=== PATIENT | male | born 1935 | race Caucasian/White ===

== ENCOUNTER 2017-08-11 08:36 | Outpatient (CLI) | payer MEDICARE ==
--- NOTE | 2017-08-11 13:44 | HP ---
DATE OF SERVICE: 08/11/2017 HISTORY OF PRESENT ILLNESS: Mr. Ramírez Teran is a very pleasant 82-year-old gentleman, who [facility] for evaluation of recurrent cellulitis of the right and left lower extremities. The patient was referred to the [facility] by PAYTON Bautista, on 08/11/2017. The patient is accompanied by his son and [id number] today. The patient is currently receiving the applicati on of compression wraps to the right and left feet and lower legs by Home Health. The patient also utilizes JUAN hose when his right and left feet and lower legs are not wrapped. PAST MEDICAL HISTORY: 1. Hypertension. 2. Gastroesophageal reflux disease. 3. Coronary artery disease. 4. Dementia. 5. History of anemia. 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 7. History of gastrointestinal bleeding. 8. History of protein malnutrition. PAST SURGICAL HISTORY: 1. Coronary artery bypass grafting x4. 2. Left total knee replacement. 3. Right total knee replacement. 4. Right hydrocelectomy. MEDICATIONS: 1. Vitamin D3. 2. Aspirin 81 mg. 3. Chlorthalidone. 4. Citalopram. 5. Ferrous sulfate. 6. Lasix. 7. Tylenol. 8. Potassium. 9. Multivitamin. 10. Metoprolol. 11. Omeprazole. 12. Xanax. 13. Pravachol. 14. Coenzyme Q10. ALLERGIES: No known diagnosed allergies. SOCIAL HISTORY: Social history is significant for the rare use of alcohol in the past. The patient stopped smoking 20 years ago. The patient has a history of tobacco use of up to 1/2-pack of cigare ttes per day for 5-6 years. FAMILY HISTORY: Family history is negative for diabetes mellitus or coronary artery disease. PHYSICAL EXAMINATION: VITAL SIGNS: Temperature 97.9, pulse 57, respirations 19, blood pressure 144/65. GENERAL: An 82-year-old gentleman, sitting on table in examination room, in no acute distress. HEENT: Normocephalic, atraumatic. NECK: No nuchal rigidity. CHEST: Clear to auscultation. CARDIOVASCULAR: Regular rate and rhythm. ABDOMEN: Soft. EXTREMITIES: Edema of the right and left feet and lower legs is present on exam today. Stasis derm atitis is present over the right and left lower legs. No open wounds are present over the right or left lower legs. No cellulitis of the right or left lower legs is present. No maceration of the sk in of the right or left lower legs is noted. Dorsalis pedis pulse is palpable on the right and on t he left. Circumferences of the right and left lower extremities at the ankle, calf, and knee are: Right lower extremity, ankle 25.0 cm, calf 33.5 cm, knee 41.0 cm; left lower extremity, ankle 25.8 c m, calf 34.0 cm, knee 39.4 cm. ASSESSMENT AND PLAN: 1. Lymphedema of right and left lower extremities. The patient's son and [id number] have been reassured that no open wounds of the right or left lower leg are present on exam today. The patien t has been given a prescription for Synalar ointment 0.025% to be applied to the skin of the right a nd left lower legs for stasis dermatitis at the time of dressing changes. Arrangements will also be made for the initiation of in-home lymphedema therapy. The patient's son and [id number] under stand and are in agreement with the preceding treatment plan. The patient is to return to the Wound Center on 09/02/2017. Orders will be transmitted to Home Health for the present dressing changes t o be continued at the current frequency. No antibiotics will be prescribed today, and the patient's family has also been reassured that no cellulitis of the right or left lower leg is present on exam today. 2. Hypertension. 3. Gastroesophageal reflux disease. 4. Coronary artery disease. 5. Dementia. 6. History of anemia. 7. 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 8. History of gastrointestinal bleeding. 9. History of protein malnutrition.
[2017-08-11] MEDS ORDERED: Sodium Chloride 0.9% 15 ML NEB ONE (17:22)
== END 2017-08-11 08:37 | disposition home or self-care (01) ==
LOC: WCC 08:36
PROVIDERS: ATTEND Family Medicine
DX: I89.0 Lymphedema, not elsewhere classified (principal); I10 Essential (primary) hypertension; K21.9 Gastro-esophageal reflux disease without esophagitis; I25.10 Atherosclerotic heart disease of native coronary artery without angina pectoris; F03.90 Unspecified dementia, unspecified severity, without behavioral disturbance, psychotic disturbance, mood disturbance, and anxiety; Z85.01 Personal history of malignant neoplasm of esophagus; Z86.2 Personal history of diseases of the blood and blood-forming organs and certain disorders involving the immune mechanism; Z87.19 Personal history of other diseases of the digestive system; Z86.39 Personal history of other endocrine, nutritional and metabolic disease
CPT/HCPCS: 97139; 97602; G0463; 99203; A4218

== ENCOUNTER 2018-02-19 09:57 | Emergency (ER) | payer MEDICARE ==
--- NOTE | 2018-02-19 11:32 | RAD ---
PORTABLE CHEST: DATE: 02/19/18. POVIDED CLINICAL HISTORY: Cough. COMPARISON: 11/24/16. The cardiac silhouette remains enlarged. Median sternotomy changes are again seen. Athero sclerosis involves the aortic arch. No focal consolidation, pleural fluid, or pneumothorax apparent. IMPRESSION: No evidence for an acute cardiopulmonary process. POS: [facility]
[2018-02-19 11:34] LABS: Bilirubin Negative (Negative); Blood, Urine Negative (Negative); Clarity CLEAR (Clear); Glucose, Urine (Dipstick) Negative (Negative); Leukocyte Negative (Negative); Nitrite Negative (Negative); Protein, Urine (Dipstick) Negative (Neg-Trace); Specific Gravity, Urine 1.011 (1.002-1.036); Urobilinogen 0.2 mg/dL (0.2-1.0); pH, Urine 5.5 (5.0-9.0)
[2018-02-19 12:05] LABS: #Lymphocytes 1.2 thou/uL (1.20-3.40); #Monocytes 0.4 thou/uL (0.11-0.59); #Neutrophils 5.1 thou/uL (1.40-6.50); %Basophils 0.2 % (0.0-1.0); %Eosinophils 0.5 % (0.0-10.0); %Lymphocytes 17.5 % (21.0-51.0); %Monocytes 6.6 % (0.0-10.0); %Neutrophils 75.3 % (42.0-75.0); Hemoglobin 12.7 g/dL (14.0-18.0); Mean Corpuscular HGB CONC 34.3 g/dL (32.0-36.0); Mean Corpuscular Hemoglobin 33.1 pg (27.0-31.0); Mean Corpuscular Volume 96.4 fl (80.0-94.0); Mean Platelet Volume 7.3 fL (7.4-10.4); Platelet Count 153 thou/uL (130-400); RBC Distribution Width 11.9 % (11.5-14.5); Red Blood Cell (RBC) Count 3.85 mill/uL (4.70-6.10); White Blood Cell (WBC) Count 6.8 thou/uL (4.8-10.8)
[2018-02-19 12:32] LABS: ALT (SGPT) 15 U/L (8-55); AST (SGOT) 18 U/L (5-34); Albumin 4.3 g/dL (3.4-4.8); Alkaline Phosphatase 86 U/L (40-150); Anion Gap 12 mmol/L (10-20); BUN (Urea Nitrogen) 16 mg/dL (8.4-25.7); Bilirubin, Total 0.6 mg/dL (0.2-1.2); Calc. Creatinine Clearance 0 mL/min (70-130); Calcium 9.7 mg/dL (7.8-10.44); Carbon Dioxide 26 mmol/L (23-31); Chloride 104 mmol/L (98-107); Estimated GFR-MDRD 59; Globulin 3.4 g/dL (2.4-3.5); Glucose 100 mg/dL (83-110); Lipase 42 U/L (8-78); Potassium 4.3 mmol/L (3.5-5.1); Protein, Total 7.7 g/dL (5.8-8.1); Sodium 138 mmol/L (136-145)
== END 2018-02-19 13:00 | disposition home or self-care (01) ==
LOC: ERS 09:57
DX: R09.89 Other specified symptoms and signs involving the circulatory and respiratory systems (principal); I25.10 Atherosclerotic heart disease of native coronary artery without angina pectoris; E78.5 Hyperlipidemia, unspecified; I10 Essential (primary) hypertension; F03.90 Unspecified dementia, unspecified severity, without behavioral disturbance, psychotic disturbance, mood disturbance, and anxiety; Z87.891 Personal history of nicotine dependence; Z79.899 Other long term (current) drug therapy; Z79.82 Long term (current) use of aspirin
CPT/HCPCS: 71045; 80053; 81003; 83690; 85025; 93005

== ENCOUNTER 2018-06-02 14:19 | Inpatient (IN) | payer MEDICARE ==
[2018-06-02] MEDS ORDERED: PROPOFOL 200 MG/20 ML VIAL ONE (14:33)
[2018-06-02 14:54] LABS: #Lymphocytes 1.2 thou/uL (1.20-3.40); #Monocytes 0.6 thou/uL (0.11-0.59); #Neutrophils 6.1 thou/uL (1.40-6.50); %Basophils 0.2 % (0.0-1.0); %Eosinophils 0.2 % (0.0-10.0); %Lymphocytes 14.8 % (21.0-51.0); %Monocytes 7.2 % (0.0-10.0); %Neutrophils 77.5 % (42.0-75.0); Hemoglobin 12.1 g/dL (14.0-18.0); Mean Corpuscular Hemoglobin 33.1 pg (27.0-31.0); Mean Corpuscular Volume 97.2 fL (78.0-98.0); Mean Platelet Volume 6.8 fL (7.4-10.4); Platelet Count 160 thou/uL (130-400); RBC Distribution Width 11.9 % (11.5-14.5); Red Blood Cell (RBC) Count 3.67 mill/uL (4.70-6.10); White Blood Cell (WBC) Count 7.9 thou/uL (4.8-10.8)
[2018-06-02 15:13] LABS: ALT (SGPT) 11 U/L (8-55); AST (SGOT) 16 U/L (5-34); Albumin 4.4 g/dL (3.4-4.8); Alkaline Phosphatase 91 U/L (40-150); Anion Gap 15 mmol/L (10-20); BUN (Urea Nitrogen) 34 mg/dL (8.4-25.7); Bilirubin, Total 0.8 mg/dL (0.2-1.2); Calc. Creatinine Clearance 0 mL/min (70-130); Calcium 9.8 mg/dL (7.8-10.44); Carbon Dioxide 27 mmol/L (23-31); Chloride 107 mmol/L (98-107); Estimated GFR-MDRD 36; Globulin 3.3 g/dL (2.4-3.5); Glucose 134 mg/dL (83-110); Lipase 26 U/L (8-78); Potassium 4.2 mmol/L (3.5-5.1); Protein, Total 7.7 g/dL (5.8-8.1); Sodium 145 mmol/L (136-145)
[2018-06-02] MEDS ORDERED: Midazolam HCl 2 mg/2 ml Vial ONE (18:28)
[2018-06-02] MEDS ORDERED: Fentanyl 100 MCG/2 ML VIAL ONE (18:28)
[2018-06-02] MEDS ORDERED: Promethazine HCl 25 MG/ML VIAL SLOW IVP PRN (19:10)
[2018-06-02] MEDS ORDERED: Promethazine HCl 25 MG/ML VIAL IM PRN (19:10)
[2018-06-02] MEDS ORDERED: Ondansetron HCl/PF 4 MG/2 ML Vial IVP PRN (19:10)
--- NOTE | 2018-06-02 20:10 | CON ---
DATE OF CONSULTATION: 06/02/2018 GI ER CONSULTATION NOTE REASON FOR CONSULTATION: Dysphagia and possible food impaction. HISTORY OF PRESENT ILLNESS: Ramírez Teran is an 83-year-old gentleman, previously seen by my GI colleague, Dr. Esdras Royal. Dr. Royal has been following him for several years for Wallace's esophagus surveillance. It looks like in late 2016, the patient was hospitalized actually with melena and a recent fall. He underwent EGD at that time. He was found to have Wallace's esophagus with a new nodular area and a large hiatal hernia. The nodular area was biopsied and came back as invasive adenocarcinoma arising within a background of intestinal metaplasia. The patient was subsequently referred for further workup including endoscopic ultrasound. It appears he went to [facility] and had an endoscopic ultrasound in 01/2017. I do not have an actual report from that procedure in our system. The patient's son tells me that the endoscopic ultrasound findings were evidently reassuring, but that afterward there was never any followup for any treatment of this adenocarcinoma. I am not sure to what extent, this is actually the case or if any treatments were applied. At any rate, the patient did not follow up for over a year since then with regard to this issue. He is at the [facility]. The patient's son reports that the patient's weight has been stable and he has continued to feel well. However, over the past few weeks, he has had progressive dysphagia to solids and now also to liquids. He was sent over because his care provider at the facility said he was unable to tolerate any food or even any liquids today. He had been seen by Dr. Royal in our clinic just a week ago and he was scheduled for outpatient EGD next week. REVIEW OF SYSTEMS: The patient has dementia, but full review of systems including head, eyes, ears, nose, throat, constitutional, cardiovascular, respiratory, musculoskeletal, and neurologic systems is negative except as noted in the HPI. PAST MEDICAL HISTORY: Coronary artery disease; coronary artery bypass, hyperlipidemia; hypertension; CVA; dementia; esophageal adenocarcinoma, diagnosed in 10/2016, unclear if there was any initial treatment, but no followup for over the past year; bilateral knee replacement. FAMILY HISTORY: Noncontributory. SOCIAL HISTORY: The patient is at the [facility]. ALLERGIES: No known drug allergies. OUTPATIENT MEDICATIONS: Coenzyme Q10, Pravachol, potassium chloride, omeprazole , Theragran, metoprolol, memantine, vitamin D3, chlorthalidone, acetaminophen and alprazolam. PHYSICAL EXAMINATION: VITAL SIGNS: Blood pressure 128/81, pulse 62, 95% oxygen saturation on room air. GENERAL: An 83-year-old gentleman, appearing chronically ill, but nontoxic, lying in bed comfortably, in no distress. SKIN: No jaundice, no rash visible or palpable. EYES: No scleral icterus. Extraocular movements intact. ENT: Mucous membranes moist, no oral lesions. LYMPH: No submandibular or supraclavicular lymphadenopathy. THYROID: Nontender to palpation. HEART: Regular rate and rhythm. LUNGS: Clear to auscultation bilaterally. ABDOMEN: Bowel sounds present, soft and nontender to palpation. EXTREMITIES: No peripheral edema. VESSELS: Radial pulses 2+ bilaterally. NEUROLOGICAL: Cranial nerves II-XII intact bilaterally. No focal deficits. LABORATORY DATA: Hemoglobin 12.1, WBC 7.9, platelets 160. Sodium 145, potassium 4.2, BUN 34, creatinine 1.81. Lipase 26. LFTs all normal with total bilirubin 0.8, alkaline phosphatase 91, AST 16, ALT 11, albumin 4.4. ASSESSMENT AND PLAN: 1. Dysphagia. 2. Possible esophageal foreign body. 3. Esophageal adenocarcinoma, diagnosed in 10/2016. The patient was diagnosed with esophageal cancer a year and a half ago, and it appears has had no definitive therapy or follow up since then. I am concerned that he may have progressive esophageal cancer, now with progressive obstruction. The patient is currently handling his secretions just fine, but evidently has been unable to tolerate even liquids today. It is possible he has esophageal foreign body impacted in this area. We will plan to proceed with EGD on an urgent basis this evening for further assessment and foreign body removal if necessary. His disposition following the procedure to be determined by the findings. If he is not completely obstructed, he could potentially be discharged back to his care facility this evening, but if it looks like liquid diet is going to be a problem afterward, he may need to be admitted to the Hospitalist Service after the procedure. Further recommendations following EGD. [facility]
[2018-06-02] MEDS ORDERED: Metoprolol Tartrate 5 MG/5 ML VIAL IVP PRN (21:02)
[2018-06-02] MEDS ORDERED: Lorazepam 2 MG/ML VIAL SLOW IVP PRN (21:03)
[2018-06-02] MEDS: Sodium Chloride 0.9% 1,000 ML IV SCH (21:45)
--- NOTE | 2018-06-02 23:01 | OP ---
DATE OF PROCEDURE: 06/02/2018 GI ENDOSCOPY NOTE SURGEON: Ricardo Morales M.D. RN SURGICAL SURGEON: None. PROCEDURE: Esophagogastroduodenoscopy. INDICATION: 1. Progressive dysphagia. 2. Possible esophageal foreign body. 3. Known history of esophageal adenocarcinoma. MEDICATIONS: See anesthesia record. FINDINGS: After discussion of the risks, benefits and alternatives of the procedure, informed consen t was obtained and witnessed. Pre-endoscopic cardiopulmonary examination was satisfactory. Timeout was performed before sedation was achieved. Sedation was achieved with anesthesia assistance in the endoscopy unit. A Pentax adult upper endoscope was placed into the oropharynx and passed through the cricopharyngeus under direct visualization. There was a moderate amount of retained semiliquid food matter and secretions throughout the length of the esophagus. This was easily suctioned. In the di stal esophagus rather there is a completely obstructing friable mass at 35 cm in the incisors. This represents his known adenocarcinoma diagnosed last year. The mass is now completely obstructing the esophageal lumen. There were few food and pill particles above the mass. I was unable to advance th e endoscope beyond this area. At this point, the endoscope was completely withdrawn. I did not obta in esophageal biopsies on this examination, because this has already been biopsy proven adenocarcinom a. The patient was allowed to recover, the patient tolerated the procedure well. He did have vomiti ng upon induction of anesthesia, but this was quickly suctioned and there was no witnessed aspiration . IMPRESSION: 1. Completely obstructing friable esophageal mass at 35 cm, representing his known esophageal adenoc arcinoma. 2. Unable to advance the endoscope beyond the distal esophageal mass. RECOMMENDATIONS: 1. N.p.o. 2. The patient will need to be admitted to the Hospitalist Service for further workup. 3. Oncology consultation. 4. CT of the chest, abdomen, and pelvis for staging. 5. General surgery consultation for consideration of open PEG tube placement.
[2018-06-02 23:34] VITALS: BMI 28.7
[2018-06-03 05:34] LABS: Anion Gap 13 mmol/L (10-20); BUN (Urea Nitrogen) 33 mg/dL (8.4-25.7); Calc. Creatinine Clearance 47 mL/min (70-130); Calcium 9.6 mg/dL (7.8-10.44); Carbon Dioxide 26 mmol/L (23-31); Chloride 111 mmol/L (98-107); Estimated GFR-MDRD 49; Glucose 139 mg/dL (83-110); Potassium 3.5 mmol/L (3.5-5.1); Sodium 146 mmol/L (136-145)
[2018-06-03 05:58] LABS: Band 19 % (5-11); Hemoglobin 11.3 g/dL (14.0-18.0); Hypochromia SLIGHT = 6-15 cells (100X) (0-5/hpf); Lymphocytes 1 % (21-51); MDiff Complete? YES; Mean Corpuscular HGB CONC 34.2 g/dL (32.0-36.0); Mean Corpuscular Hemoglobin 33.1 pg (27.0-31.0); Mean Platelet Volume 7.1 fL (7.4-10.4); Monocytes 4 % (0-10); Neutrophil 76 % (42-75); PLT Morphology Comment Appears Adequate; Platelet Count 136 thou/uL (130-400); RBC Distribution Width 11.9 % (11.5-14.5); Red Blood Cell (RBC) Count 3.42 mill/uL (4.70-6.10)
[2018-06-03] MEDS ORDERED: Enoxaparin Sodium 30 MG/0.3 ML SYRINGE SC SCH (09:00)
[2018-06-03] MEDS: Heparin 5,000 UNITS/ML VIAL SC SCH ×3 (09:40→21:31)
[2018-06-03] MEDS ORDERED: PHENYLEPHRINE-NS 100 MCG/ML 10 ML SYRINGE ONE (11:38)
[2018-06-03] MEDS ORDERED: Lidocaine 1% PF 5 ML VIAL ONE (11:38)
[2018-06-03] MEDS ORDERED: Succinylcholine Chloride 20 MG/ML 10 ml SYRINGE FS ONE (11:38)
[2018-06-03] MEDS ORDERED: Dexamethasone 20 MG/5 ML VIAL ONE (11:38)
[2018-06-03] MEDS ORDERED: Ketorolac Tromethamine 30 MG/ML VIAL ONE (11:38)
[2018-06-03] MEDS ORDERED: PROPOFOL 200 MG/20 ML VIAL ONE (11:38)
[2018-06-03] MEDS ORDERED: Glycopyrrolate 0.2 MG/ML 5 ML SYRINGE ONE (11:38)
[2018-06-03] MEDS ORDERED: Ondansetron HCl/PF 4 MG/2 ML Vial ONE (11:38)
[2018-06-03] MEDS ORDERED: ePHEDrine/0.9% NaCl/PF SYRINGE 50 mg/10 ml ONE (11:38)
--- NOTE | 2018-06-03 11:54 | CT ---
CT CHEST WITHOUT IV CONTRAST: CT ABDOMEN AND PELVIS WITHOUT IV CONTRAST: 06/03/2018 HISTORY: Mass in the esophagus. Evaluation for metastatic disease. COMPARISON: None available. FINDINGS: The esophagus is dilated and fluid filled with soft tissue mass seen in the distal esophagus and at t he GE junction. This is difficulty to adequately evaluate on this no-contrast exam, but the area of suggested soft tissue density measures 4.3 cm AP x 7.8 cm transverse There are patchy and reticulonodular densities seen within the left upper and left lower lobe, which could be related to an infectious or inflammatory process. There is a noncalcified pulmonary nodule, measuring 6 mm, seen at the lateral aspect of the right low er lobe. There is also a right upper lobe pulmonary nodule seen in the right upper lobe, to the leve l of the major as well as minor fissure, which measures 7 mm. The pulmonary nodules on the left are difficult to evaluate due to the reticulonodular opacities present. Post surgical changes related to CABG are noted. There are extensive vascular calcifications in the coronary arteries, as well as involving the thoracic aorta. The heart is enlarged. No lymphadenopathy is appreciated on this nonenhanced CT scan exam. There is calcified granuloma in the liver. The spleen and pancreas demonstrate a grossly normal nonenhanced CT appearance. There is symmetric t hickening of each adrenal gland. This was also seen on a CT lumbar spine from 10/30/2016. There are three exophytic, hypodense lesions involving the right kidney, the largest at the medial ri ght kidney, measuring 3 cm, which demonstrates fluid attenuation on the provided images and may repre sent renal cysts. There is a subcentimeter, wzw-vrcfi-ds-characterize, hypodense lesion at the inferior pole, left kidn ey. The urinary bladder is distended and has a normal nonenhanced CT appearance. Multiple colonic diverticula are seen throughout the colon. The appendix is visualized and is normal in caliber. Prominent vascular calcifications are seen in the abdominal aorta and involving the iliac arteries. No enlarged lymph nodes are seen in the abdomen. There are small fat-containing bilateral inguinal hernias. Degenerative changes are seen within the thoracic as well as the lumbar spine with left convex rotosc oliosis of the lumbar spine. No lytic or sclerotic osseous lesions are seen to suggest osseous metas tatic disease. IMPRESSION: 1. Large mass centered in the region of the distal esophagus and at the level of the gastroesophagea l junction with a dilated and fluid filled esophagus seen proximal to this location with a small incr eased density focus in the distal esophagus. 2. Two pulmonary nodules, one in the right upper lobe and the second in the right lower lobe, measur ing 7 mm and 6 mm, respectively. 3. Reticulonodular and patchy opacities within the left upper and left lower lobes, which may be rel ated to an infectious or inflammatory process. Follow up to resolution is recommended. 4. Cardiomegaly with prominent atherosclerotic vascular calcifications in the coronary arteries, as well as involving the thoracic and abdominal aorta. 5. Colonic diverticulosis. 6. No enlarged lymph nodes are seen by CT size criteria. There are no findings to suggest osseous m etastatic disease. POS: [facility]
--- NOTE | 2018-06-03 12:57 | PDOC.EVN ---
Event Note - Event Note Event Note: h&p [id number]
--- NOTE | 2018-06-03 12:59 | PDOC.PN ---
- Subjective Encounter Start Date: 06/03/18 Encounter Start Time: 12:57 Subjective: nsg notes rev, pablo ovn, no new c/o, family (2 sons) at bedside -: no fevers/ chills/ SOB - Objective Resuscitation Status: Resuscitation Status DNR:Do Not Resuscitate Vital Signs & Weight: Vital Signs (12 hours) Temp Pulse Resp BP Pulse Ox 06/03/18 11:15 98.6 F 62 16 109/52 L 92 L 06/03/18 08:30 98.6 F 62 16 06/03/18 07:20 98.7 F 66 20 115/67 94 L 06/03/18 04:06 98.7 F 70 15 121/57 L 93 L Weight Admit Weight 189 lb Weight 189 lb I&O: 06/02/18 06/03/18 06/04/18 06:59 06:59 06:59 Intake Total 600 Output Total 450 Balance 150 Result Diagrams: 06/03/18 04:53 06/03/18 04:53 Phys Exam - Physical Examination Constitutional: NAD lying in the hospital bed slightly dry mm Neurological: moves all 4 limbs Psychiatric: normal affect Dx/Plan - Plan cont current plan of care * esophageal mass * suspect adenoca 2/2 known hx of adenoca * ? mets to lungs * apprec onc c/s * s/p EGD - apprec GI c/s * consideration for a surgical approach to PEG - apprec surg c/s * reviewed CT results with pt and pts family KYLE likely 2/2 dehydration imprv w/ IVF, continue to monitor, repeat BMP leukocytosis suspect reactive repeat CBC HTN stable dementia stable diet: NPO, IVF NS d/w pt and pts sons at bedside d/w bedside nsg d/w case Review of Systems - Medications/Allergies Allergies/Adverse Reactions: Allergies Allergy/AdvReac Type Severity Reaction Status Date / Time No Known Allergies Allergy Verified 06/02/18 23:35 Medications: Current Medications Famotidine (Pepcid) 20 mg SLOW IVP QPM [facility] Heparin Sodium (Porcine) (Heparin) 5,000 units SC TID [facility] Last Admin: 06/03/18 09:40 Dose: 5,000 units Sodium Chloride (Normal Saline 0.9%) 1,000 mls @ 70 mls/hr IV .[id number] [facility] Last Admin: 06/02/18 21:45 Dose: 1,000 mls Lorazepam (Ativan) 0.25 mg SLOW IVP HS PRN PRN Reason: Anxiety/Agitation Metoprolol Tartrate (Lopressor) 5 mg IVP Q6H PRN PRN Reason: Hypertension Morphine Sulfate (Morphine) 2 mg SLOW IVP Q6H PRN PRN Reason: SEVERE PAIN 6-10 Last Admin: 06/03/18 06:49 Dose: 2 mg Sodium Chloride (Flush - Normal Saline) 10 ml IVF Q12HR [facility] Last Admin: 06/03/18 10:03 Dose: Not Given Sodium Chloride (Flush - Normal Saline) 10 ml IVF PRN PRN PRN Reason: Saline Flush
--- NOTE | 2018-06-03 13:33 | HP ---
CHIEF COMPLAINT: Dysphagia. HISTORY OF PRESENT ILLNESS: This is an 83-year-old male with a prior history of esophageal adenocarc inoma who presented initially to Gastroenterology for dysphagia. He underwent an EGD with Dr. Andrew winters demonstrated an obstructive esophageal mass. The patient was subsequently requested for Interna l Medicine admission to our service. At the time of my evaluation the patient is currently post-EGD. It appears that he tolerated this pr ocedure reasonably well, although he was noted to have 1 episode of emesis while receiving propofol. At the time of my evaluation the patient does not appear to be in acute distress and has no active c omplaints. He also has not tried any further oral intake at this point in time. REVIEW OF SYSTEMS: As per HPI. CONSTITUTIONAL: No significant recent weight loss or gain that the patient is able to recall, no fev ers, no chills. HEENT: No new headaches, lightheadedness, vision changes or dizziness. CARDIOVASCULAR: Denies any chest pain, chest pressure, palpitations, left-sided arm numbness or ting ling. RESPIRATORY: Denies any shortness of breath, dyspnea on exertion, cough, congestion or recent upper respiratory infection. GASTROINTESTINAL: Dysphagia as noted above without any overt complaints of nausea or abdominal pain. Denies any issues with diarrhea or constipation. GENITOURINARY: Denies any dysuria, change in urinary frequency and quality or color. MUSCULOSKELETAL: Denies any new arthralgias or myalgias. Remainder of the review of systems otherwise negative. PAST MEDICAL HISTORY: Significant as for above. 1. Includes adenocarcinoma of his lower esophagus. 2. History of Wallace's disease. 3. Dementia. 4. Coronary artery disease 5. Hypertension. 6. Gastroesophageal reflux disease. 7. History of protein calorie malnutrition. 8. Status post CABG x4 vessels. 9. Status post left total knee replacement. 10. Status post right total knee replacement. 11. Status post right hydrocelectomy. HOME MEDICATIONS: Please see the EMR for full record, it appears to currently include the following; ergocalciferol 5000 units p.o. as directed, alprazolam 0.5 mg p.o. at bedtime, pravastatin 20 mg p.o . at bedtime, multivitamin 400 mcg p.o. daily, potassium chloride 20 mEq p.o. daily, omeprazole 40 mg p.o. b.i.d., metoprolol 25 mg p.o. b.i.d., memantine 5 mg p.o. daily, acetaminophen 2 mg p.o. daily , losartan 25 mg p.o. daily, docusate 100 mg p.o. daily, furosemide 1.5 tabs p.o. daily, unknown stre ngth of the tab, ferrous sulfate 325 mg p.o. b.i.d., ____, CoQ10 100 mg p.o. daily, aspirin 81 mg p .o. daily. ALLERGIES: No known drug allergies. FAMILY HISTORY: No known family history of other individuals with esophageal cancer. No other known issues with gastroesophageal disease in the family in general. SOCIAL HISTORY: Denies any active tobacco, alcohol or illicit drug use. The patient is a resident [facility]. CODE STATUS: He is accompanied today by his son who is his medical power of admitted attorneys. Patient's son indicates that the patient always wanted to be a do not resuscitate; however, this could be reversed for procedures. Essentially, the patient does not wish to undergo a code type situation. PHYSICAL EXAMINATION: GENERAL: The patient is awake, alert, conversant, in no acute distress, lying in the hospital bed. HEENT: Normocephalic, atraumatic. Slightly dry mucous membranes. Equal ocular motions are intact. CARDIOVASCULAR: S1, S2. Pulses 2+ bilateral upper extremities, no pitting pedal edema. RESPIRATORY: Reasonable air movement. Limited anterior examination. No wheezes, rales or rhonchi. RESPIRATORY: Grossly clear to auscultation without dyspnea with conversation. ABDOMEN: Positive bowel sounds, soft, nontender to palpation. MUSCULOSKELETAL: Moving all 4 extremities on command. LABORATORY DATA AND IMAGING: WBC 7.9, hemoglobin 12.1, hematocrit 35.7, platelets 160. CMP: Sodium 145, potassium 4.2, chloride 107, bicarbonate 27, BUN 34, creatinine 1.81, glucose 134, calcium 9.8, total bilirubin 0.8, AST 16, ALT 11, alkaline phosphatase 91, total protein 7.7, albumin 4.4, lipase is 26. ASSESSMENT AND PLAN: This is an 83-year-old male who presented with chief complaint of dysphagia. 1. Dysphagia likely secondary to obstructive esophageal mass. The patient has a known history of es ophageal adenocarcinoma. We will go ahead and obtain CT to evaluate grossly for mets, but he will ne ed further evaluation and workup. I appreciate Oncology consultation. In terms of the patient's nut rition, I have discussed with Gastroenterology and it appears that he will need a surgical approach f or PEG tube placement. I appreciate surgical consultation as well. I have discussed this also with the patient's family at bedside. A PEG tube would be an instance where they would consider reversing the DNR on a temporary basis in order to have the procedure completed. However, he would ultimately still be a do not resuscitate 2. Status post EGD. Concern for the possibility of aspiration as the patient did have 1 episode of emesis on propofol. We will continue to closely monitor the patient's clinical and respiratory statu s. 3. Dementia, stable. 4. History of coronary artery disease. Continue the patient's home regimen. Currently, stable. 5. Diet: N.p.o. IV fluids at maintenance with close monitoring of intake and output. 6. Activity: As tolerated. 7. Deep venous thrombosis prophylaxis with heparin. 8. Acute kidney injury is suspected with an elevated BUN and creatinine. This is likely prerenal et iology secondary to volume depletion and dehydration as the patient has been having a lot of difficul ty with oral intake. IV fluids as above. Repeat BMP in the a.m.
[2018-06-03] MEDS: Sodium Chloride 0.9% 1,000 ML IV SCH ×3 (13:34→21:32)
--- NOTE | 2018-06-03 13:36 | PRG ---
DATE OF SERVICE: 06/03/2018 SUBJECTIVE: Mr. Teran is feeling fine today. He is not having any chest pain, shortness of breath. He had some mild cough earlier today, but none now. He has been afebrile. He has been seen by Dr. Mai who is tentatively planning on a PEG tube placement. Oncology consultation is pending. PHYSICAL EXAMINATION: VITAL SIGNS: Temperature 98.6, pulse 62, blood pressure 109/52, 92% oxygen saturation on room air. GENERAL: No acute distress. HEART: Regular rate and rhythm. LUNGS: Bibasilar crackles. No wheezing, no respiratory distress. ABDOMEN: Soft and nontender to palpation. EXTREMITIES: No peripheral edema. LABORATORY STUDIES: WBC went up to 20.0, hemoglobin 11.3, platelets 136. Sodium 146, potassium 3.5, BUN 33, creatinine 1.39, glucose 139. IMAGING STUDIES: CT of the chest, abdomen, and pelvis demonstrates a large distal esophageal mass at the level of the GE junction with dilated and fluid filled esophagus proximal to the mass. There are 2 pulmonary nodules as well as some reticulonodular and patchy opacities in the left lung. There are no enlarged lymph nodes by CT size criteria and no findings to suggest osseous metastasis. ASSESSMENT AND PLAN: 1. Esophageal adenocarcinoma, now with complete distal esophageal obstruction. 2. Malnutrition, secondary to esophageal obstruction. I appreciate the assistance of Dr. Aponte as well as other consult providers. I agree that open PEG tube placement is really the best way for delivery of nutrition long-term. Oncology consultation is pending, but I expect the patient is not going to be a great candidate for any definitive therapy of his esophageal cancer, and that efforts will in the end need to be palliative. I discussed this with the patient and his family and they expressed understanding. NANETTE
--- NOTE | 2018-06-03 16:24 | HP ---
HISTORY OF PRESENT ILLNESS: Ramírez Teran is an 83-year-old male patient with esophageal cancer, obstruc ting. Dr. Morales tried a PEG tube yesterday and was unsuccessful. The patient lives in assisted care. He worked previously for [employer] on [employer]. He uses a walker. The patient has been follo wed for Wallace's esophagus, had Carl and White opinions rendered in the past. Plan is to place a l aparoscopic gastrostomy tube as gastroenterology was unable to do a PEG tube. White count is elevate d. CAT scan reveals densities upper lung kathleen. ALLERGIES: None. SOCIAL HISTORY: Tobacco remotely cessation in the past. ALCOHOL: None. MEDICATIONS: Vitamin D, Xanax, Pravachol, Theragran, K-Dur, metoprolol tartrate, Cozaar, Colace, Las ix, iron, chewable chlorthalidone. PAST SURGICAL HISTORY: Failed PEG tube due to obstructing esophageal cancer. PAST MEDICAL HISTORY: The patient had a stress test for a total knee replacement and found to have c oronary artery disease, undergoing coronary bypass grafting 12 years ago. He has had two total knee replacement since that time. He has been asymptomatic from a cardiac standpoint since. He has had p ast colonoscopies, upper endoscopies. Adenocarcinoma of the esophagus, Wallace's esophagus. Prior t o that, dementia. History of coronary disease, stable. Hypertension, GERD. REVIEW OF SYSTEMS: Otherwise, noncontributory. PHYSICAL EXAMINATION: VITAL SIGNS: 5 feet 8 inches, 109 pounds, 28 BMI, 98.6, 62, 109/52. LUNGS: Clear to auscultation. CARDIAC: Regular rate and rhythm without murmur or gallop. ABDOMEN: Soft, nontender. EXTREMITIES: Unremarkable. ASSESSMENT AND PLAN: Obstructing esophageal carcinoma. PLAN: PEG tube. Risk of infection, bleeding, reoperation, malfunction of the tube discussed, he con sents.
[2018-06-03] MEDS ORDERED: Bupivacaine HCl 0.5%/Epinephrine 1:200,000/PF 30 ml Vial ONE (17:09)
[2018-06-03] MEDS ORDERED: Fentanyl 100 MCG/2 ML VIAL ONE (17:24)
[2018-06-03] MEDS ORDERED: Morphine Sulfate 2 MG/ML SYRINGE SLOW IVP PRN (18:18)
[2018-06-03] MEDS ORDERED: Promethazine HCl 25 MG/ML VIAL IM PRN (18:18)
[2018-06-03] MEDS ORDERED: Meperidine HCl/PF 25 MG/ML VIAL SLOW IVP PRN (18:18)
[2018-06-03] MEDS ORDERED: Promethazine HCl 25 MG/ML VIAL SLOW IVP PRN (18:18)
[2018-06-03] MEDS ORDERED: Esmolol 100 MG/10 ML VIAL ONE (18:49)
[2018-06-03] MEDS ORDERED: Nitroglycerin 2% Ointment 1 INCH/1 GM Packet ONE (18:50)
[2018-06-03] MEDS ORDERED: Morphine 4 MG/ML VIAL ONE (18:59)
[2018-06-03 20:25] LABS: #Lymphocytes 0.6 thou/uL (1.20-3.40); #Monocytes 1.1 thou/uL (0.11-0.59); #Neutrophils 14.6 thou/uL (1.40-6.50); %Basophils 0.1 % (0.0-1.0); %Eosinophils 0.1 % (0.0-10.0); %Lymphocytes 3.4 % (21.0-51.0); %Neutrophils 89.4 % (42.0-75.0); Hemoglobin 10.4 g/dL (14.0-18.0); Mean Corpuscular HGB CONC 34.2 g/dL (32.0-36.0); Mean Corpuscular Hemoglobin 33.9 pg (27.0-31.0); Mean Corpuscular Volume 99.3 fL (78.0-98.0); Mean Platelet Volume 6.6 fL (7.4-10.4); Platelet Count 119 thou/uL (130-400); Red Blood Cell (RBC) Count 3.07 mill/uL (4.70-6.10); White Blood Cell (WBC) Count 16.4 thou/uL (4.8-10.8)
--- NOTE | 2018-06-03 20:33 | CON ---
DATE OF CONSULTATION: 06/03/2018 REASON FOR CONSULTATION: Esophageal mass. HISTORY OF PRESENT ILLNESS: Mr. Teran is a pleasant 83-year-old male with prior history of untreated esophageal adenocarcinoma, who presented to GI for dysphagia. He underwent an EGD with Dr. Morales, which demonstrated an obstructive esophageal mass. The patient had dysphagia during the procedure. He was admitted for further workup. He underwent a CT scan of his chest, abdomen, and pelvis; showed 2 pulmonary nodules, but no lymphadenopathy. This was a noncontrast CT. The soft tissue mass at the GE junction measured 4.3 x 7.8 cm. The patient was seen in the preop area with his family, where he is planned to have a feeding tube placed. The patient lives in assisted living. He does have a history of dementia. He uses a walker. He denies any complaints at this time. PAST MEDICAL HISTORY: 1. Adenocarcinoma of the GE junction. 2. History of Wallace's esophagus. 3. Dementia. 4. Coronary artery disease. 5. Hypertension. 6. Gastroesophageal reflux disease. PAST SURGICAL HISTORY: 1. Multiple orthopedic surgeries. 2. CABG x4. ALLERGIES: No known drug allergies. HOME MEDICATIONS: 1. Aspirin 81 mg daily. 2. Chlorthalidone 25 mg daily. 3. Colace daily. 4. Iron daily. 5. Lasix 40 mg 1-1/2 tabs daily. 6. Cozaar 25 mg daily. 7. Memantine 5 mg daily. 8. Metoprolol 25 mg b.i.d. 9. Prilosec 40 mg daily. 10. K-Dur 20 mEq daily. 11. Pravachol 20 daily. 12. Xanax p.r.n. FAMILY HISTORY: No history of GI cancer. SOCIAL HISTORY: He is a resident of [facility]. No alcohol, tobacco, or illicit drug use. REVIEW OF SYSTEMS: Twelve-point review of systems is negative. PHYSICAL EXAMINATION: VITAL SIGNS: Temperature is 98.6, pulse is 62, respiratory rate 16, BP is 109/ 52. She is 92% on room air. GENERAL: Well-developed, well-nourished male in no acute distress. HEENT: Normocephalic, atraumatic. Pupils equal and reactive to light. NECK: Supple. CARDIOVASCULAR: Regular rate and rhythm. LUNGS: Clear. ABDOMEN: Soft, nontender. Bowel sounds are positive. EXTREMITIES: No clubbing, cyanosis, or edema. SKIN: No rash. HEMATOLOGIC: No petechia or purpura. NEUROLOGIC: Nonfocal. PSYCHIATRIC: The patient was oriented to place and person. PERTINENT LABORATORY AND X-RAYS: Current WBC 20, hemoglobin 11.3, hematocrit 33.2, platelet count is 136,000. He has got 76% neutrophils, 19% bands, 1% lymphocytes. Sodium is 146, potassium 3.5, chloride 111, CO2 is 26, BUN is 33, creatinine 1.39, calcium is 9.6, total bilirubin is 0.8, AST 16, ALT is 11, alkaline phosphatase is 91, serum total protein is 7.7, albumin 4.4, globulin 3.3, lipase is 26. Radiology, per HPI. ASSESSMENT: 1. Obstructing necrotic mass at the GE junction consistent with patient's history of esophageal adenocarcinoma. 2. Dementia. DISCUSSION: We discussed with the patient and family the chemo and radiation, and that the patient is not a good candidate for treatment given his dementia and performance status. They are considering a feeding tube for comfort. He will likely need a new placement, as I do not think he will do need more assistance now that he is unable to take oral. Palliative care team has already been consulted. I will consult case management for their assistance. Recommend palliative care/hospice. Thank you for the consult. NANETTE
[2018-06-03] MEDS: Famotidine/PF 20 mg/2ml Vial SLOW IVP SCH (21:31)
--- NOTE | 2018-06-03 22:11 | OP ---
DATE OF OPERATION: 06/03/2018 PREOPERATIVE DIAGNOSIS: Malnutrition obstructing esophageal carcinoma (cannot do a PEG tube). POSTOPERATIVE DIAGNOSIS: Malnutrition obstructing esophageal carcinoma (cannot do a PEG tube). PROCEDURE: Laparoscopic gastrostomy tube. SURGEON: Dr. Rod Mai ANESTHESIA: General. Local 0.5% Marcaine with epinephrine. Note catheter was left in place, should be left in place for about 2 weeks. Note dementia, at risk f or removing the PEG tube, abdominal binder placed. Bolus tube feedings recommended. PROCEDURE: The patient was taken to the operating room where under general anesthesia, abdomen was p repared with ChloraPrep, draped in routine fashion. Local anesthetic infiltrated into the skin and s ubcutaneous tissue about the operative site. Infraumbilical incision made and pneumoperitoneum to 15 mmHg obtained with the Veress needle, replacing it with a 5 port laparoscope inserted. Right latera l subcostal incision and right upper quadrant lateral incision made and 5 ports placed. Left mid lat eral abdominal incision made and a 5 port placed. The patient was placed in slight reverse Trendelen laith and colon and omentum reflected caudally and stomach identified, grasped with graspers and the g ood site noted left subxiphoid for the gastrostomy tube or this some could reached easily to the abdo andrea wall. A stab incision made and trocar catheter introduced percutaneously into the abdominal ca vity, cannulating the stomach, insufflating with carbon dioxide and then with the wire. A gely ce was placed in four quadrants. One of the four secured the stomach to the abdominal wall and surrounding the PEG tube site. The dilator placed over the J-wire and severely dilated. The port a nd then the gastrostomy tube placed over the wire into the stomach and the pull-away sheath removed a nd gastrostomy balloon filled with 10 mL of sterile water (tap water can be used). Once the tube was secured to the abdominal wall, the laparoscopic graspers were removed. Stomach flushed with saline solution and flushed easily. Good hemostasis noted. His pneumoperitoneum reduced and all instrument s removed and all skin incisions approximated with interrupted subdermal 4-0 Monocryl and DermaGlue a pplied.
[2018-06-04 05:23] LABS: Anion Gap 11 mmol/L (10-20); BUN (Urea Nitrogen) 31 mg/dL (8.4-25.7); Calc. Creatinine Clearance 49 mL/min (70-130); Calcium 8.6 mg/dL (7.8-10.44); Carbon Dioxide 27 mmol/L (23-31); Chloride 115 mmol/L (98-107); Estimated GFR-MDRD 51; Glucose 128 mg/dL (83-110); Potassium 3.8 mmol/L (3.5-5.1); Sodium 149 mmol/L (136-145)
[2018-06-04 06:15] LABS: Band 3 % (5-11); Eosinophils 1 % (0-10); Hemoglobin 10.1 g/dL (14.0-18.0); Lymphocytes 4 % (21-51); MDiff Complete? YES; Mean Corpuscular HGB CONC 34.3 g/dL (32.0-36.0); Mean Corpuscular Hemoglobin 34.2 pg (27.0-31.0); Mean Corpuscular Volume 99.6 fL (78.0-98.0); Mean Platelet Volume 7.2 fL (7.4-10.4); Monocytes 7 % (0-10); Neutrophil 85 % (42-75); PLT Morphology Comment Appears Decreased; Platelet Count 116 thou/uL (130-400); RBC Morphology Normal; Red Blood Cell (RBC) Count 2.94 mill/uL (4.70-6.10); White Blood Cell (WBC) Count 12.3 thou/uL (4.8-10.8)
[2018-06-04] MEDS: Heparin 5,000 UNITS/ML VIAL SC SCH ×3 (09:13→21:25)
--- NOTE | 2018-06-04 11:23 | PDOC.PN ---
- Subjective Encounter Start Date: 06/04/18 Encounter Start Time: 11:21 Subjective: nsg notes rev, pablo ovn, waqas PEG procedure well, pt is aware he had a -: surg yesterday but also appears to be slightly delirious asking what equip -: ment in the room was from home - Objective Resuscitation Status: Resuscitation Status DNR:Do Not Resuscitate Vital Signs & Weight: Vital Signs (12 hours) Temp Pulse Resp BP BP Pulse Ox 06/04/18 08:59 97.5 F L 48 L 18 147/66 H 95 06/04/18 03:19 97.8 F 57 L 18 149/68 H 97 Weight Admit Weight 189 lb Weight 189 lb I&O: 06/03/18 06/04/18 06/05/18 06:59 06:59 06:59 Intake Total 600 840 Output Total 450 Balance 150 840 Result Diagrams: 06/04/18 04:05 06/04/18 04:05 Phys Exam - Physical Examination Constitutional: NAD lying in hospital bed HEENT: moist MMs NAD Respiratory: no wheezing, no rales, no rhonchi Cardiovascular: RRR, no significant murmur, no rub abd binder in place, not removed Musculoskeletal: no edema, pulses present Neurological: moves all 4 limbs Dx/Plan - Plan * esophageal mass * suspect adenoca 2/2 known hx of adenoca * apprec onc c/s - consideration for a palliative approach * s/p EGD - apprec GI c/s * s/p PEG KYLE likely 2/2 dehydration imprv w/ IVF, continue to monitor, repeat BMP leukocytosis suspect reactive repeat CBC HTN stable dementia stable concern for possible development of delirium diet: terminal worker c/s for TF initiation recs IVF NS Review of Systems - Medications/Allergies Allergies/Adverse Reactions: Allergies Allergy/AdvReac Type Severity Reaction Status Date / Time No Known Allergies Allergy Verified 06/02/18 23:35 Medications: Current Medications Famotidine (Pepcid) 20 mg SLOW IVP QPM VESNA Last Admin: 06/03/18 21:31 Dose: 20 mg Heparin Sodium (Porcine) (Heparin) 5,000 units SC TID VESNA Last Admin: 06/04/18 09:13 Dose: 5,000 units Sodium Chloride (Normal Saline 0.9%) 1,000 mls @ 100 mls/hr IV .Q10H VESNA Last Admin: 06/03/18 21:32 Dose: 1,000 mls Lorazepam (Ativan) 0.25 mg SLOW IVP HS PRN PRN Reason: Anxiety/Agitation Metoprolol Tartrate (Lopressor) 5 mg IVP Q6H PRN PRN Reason: Hypertension Morphine Sulfate (Morphine) 2 mg SLOW IVP Q6H PRN PRN Reason: SEVERE PAIN 6-10 Last Admin: 06/03/18 06:49 Dose: 2 mg Sodium Chloride (Flush - Normal Saline) 10 ml IVF Q12HR [facility] Last Admin: 06/03/18 21:31 Dose: Not Given Sodium Chloride (Flush - Normal Saline) 10 ml IVF PRN PRN PRN Reason: Saline Flush
--- NOTE | 2018-06-04 13:46 | PRG ---
DATE OF SERVICE: 06/04/2018 SUBJECTIVE: Mr. Teran had his PEG tube placed laparoscopically by Dr. Mai yesterday and this went without complication. He has been tolerating both bolus tube feeds well. He denies any pain in the area. He was evaluated by Oncology yesterday, and as expected, he does not appear to be a good lonny date for chemotherapy or radiation due to his comorbidities and dementia. OBJECTIVE: VITAL SIGNS: Temperature 97.5, pulse 48, blood pressure of 147/66, 95% oxygen saturation on room air . GENERAL: In no acute distress. HEART: Regular rate and rhythm. LUNGS: Clear to auscultation bilaterally. ABDOMEN: Bowel sounds present, soft, and nontender to palpation. The PEG tube in the left upper ludin drant looks good. No erythema or tenderness around the site. EXTREMITIES: No peripheral edema. LABORATORY STUDIES: Sodium 149, potassium 3.8, BUN 31, creatinine 1.33. WBC 12.3, hemoglobin 10.1, and platelets 116. ASSESSMENT AND PLAN: 1. Esophageal adenocarcinoma. 2. Complete esophageal obstruction, secondary to esophageal adenocarcinoma. I appreciate the assist ance of Dr. Mai in PEG tube placement as well as the Oncology Service. I would agree that palliat jack/hospice care would be the best strategy going forward. The palliative team is already on board. No other recommendations from a gastrointestinal perspective. Please call any time with questions or concerns.
--- NOTE | 2018-06-04 14:51 | PRG ---
DATE OF SERVICE: 06/04/2018 The patient is postop day #1 status post laparoscopic G-tube placement. Overnight, the patient is do ing well. The wound is clean, dry, and intact. G-tube appears secure and functional. We will allow the G-tube to be used for tube feeds starting today.
[2018-06-04] MEDS: Sodium Chloride 0.9% 1,000 ML IV SCH (15:33)
[2018-06-04] MEDS: Famotidine/PF 20 mg/2ml Vial SLOW IVP SCH (21:25)
[2018-06-05 06:37] LABS: Anion Gap 11 mmol/L (10-20); BUN (Urea Nitrogen) 28 mg/dL (8.4-25.7); Calc. Creatinine Clearance 61 mL/min (70-130); Calcium 8.2 mg/dL (7.8-10.44); Carbon Dioxide 25 mmol/L (23-31); Chloride 117 mmol/L (98-107); Estimated GFR-MDRD 66; Glucose 151 mg/dL (83-110); Potassium 3.6 mmol/L (3.5-5.1); Sodium 149 mmol/L (136-145)
[2018-06-05 07:10] LABS: Band 3 % (5-11); Lymphocytes 5 % (21-51); MDiff Complete? YES; Mean Corpuscular HGB CONC 34.6 g/dL (32.0-36.0); Mean Corpuscular Hemoglobin 34.4 pg (27.0-31.0); Mean Corpuscular Volume 99.4 fL (78.0-98.0); Mean Platelet Volume 7.2 fL (7.4-10.4); Monocytes 11 % (0-10); Neutrophil 81 % (42-75); PLT Morphology Comment Appears Decreased; Platelet Count 124 thou/uL (130-400); RBC Distribution Width 11.9 % (11.5-14.5); Red Blood Cell (RBC) Count 3.19 mill/uL (4.70-6.10); White Blood Cell (WBC) Count 14.9 thou/uL (4.8-10.8)
[2018-06-05] MEDS: Heparin 5,000 UNITS/ML VIAL SC SCH ×3 (09:20→20:53)
[2018-06-05] MEDS: Sodium Chloride 0.9% 1,000 ML IV SCH ×2 (09:20→17:01)
--- NOTE | 2018-06-05 11:38 | PRG ---
DATE OF SERVICE: 06/05/2018 SUBJECTIVE: Mr. Teran is feeling okay. He continues to have to cough up his secretions, but he is no t having any abdominal pain. Tube feeds are well tolerated. PHYSICAL EXAMINATION: VITAL SIGNS: Temperature 98.9, pulse 77, blood pressure 142/70, 94% oxygen saturation on 2 liters na angie cannula. GENERAL: No acute distress. HEART: Regular rate and rhythm. LUNGS: Clear to auscultation bilaterally. ABDOMEN: PEG site looks good. ABDOMEN: Soft and nontender to palpation. EXTREMITIES: No peripheral edema. LABORATORY STUDIES: WBC 14.9, hemoglobin 11.0, platelets 124. Sodium 149, potassium 3.6, BUN 28, cr eatinine 1.07. ASSESSMENT AND PLAN: 1. Esophageal adenocarcinoma. 2. Complete esophageal obstruction secondary to esophageal adenocarcinoma. No new recommendations f rom a GI standpoint. I agree with palliative/hospice care. I understand that arrangements are being made on this front. Please call any time with questions or concerns.
[2018-06-05] MEDS ORDERED: Lorazepam 0.5 MG TAB PER TUBE PRN (17:38)
--- NOTE | 2018-06-05 20:02 | PDOC.PN ---
- Subjective Encounter Start Date: 06/05/18 Encounter Start Time: 19:50 Subjective: f/u for esophageal adenocarcinoma with total obstruction s/p lap -: gastrostomy tube placement POD #2. Tolerating TF's currently with -: Jevity 1.5. - Objective Resuscitation Status: Resuscitation Status DNR:Do Not Resuscitate MAR Reviewed: Yes Vital Signs & Weight: Vital Signs (12 hours) Temp Pulse Resp BP Pulse Ox 06/05/18 16:52 98.4 F 71 20 169/80 H 96 06/05/18 13:47 97.4 F L 83 18 170/70 H 97 06/05/18 08:40 98.9 F 77 22 H 142/70 H 93 L Weight Admit Weight 189 lb Weight 189 lb I&O: 06/04/18 06/05/18 06/06/18 06:59 06:59 06:59 Intake Total 840 1260 2169 Output Total 375 700 Balance 817 391 8364 Result Diagrams: 06/05/18 06:15 06/05/18 06:15 Additional Labs: Laboratory Tests 06/02/18 06/03/18 06/03/18 14:44 04:53 04:53 WBC 20.0 H Hgb 11.3 L Plt Count 136 Sodium 145 146 H Creatinine 1.81 H 1.39 H 06/03/18 06/04/18 06/04/18 20:10 04:05 04:05 WBC 16.4 H 12.3 H Hgb 10.4 L 10.1 L Plt Count 119 L 116 L Sodium 149 H Creatinine 1.33 H Phys Exam - Physical Examination Constitutional: NAD HEENT: PERRLA, sclera anicteric, oral pharynx no lesions Neck: no nodes, no JVD, supple, full ROM Respiratory: no wheezing, no rales, no rhonchi, clear to auscultation bilateral S1, S2 Cardiovascular: RRR, no significant murmur, no rub, gallop G-tube in place Gastrointestinal: soft, no distention, positive bowel sounds Musculoskeletal: no edema, pulses present Neurological: moves all 4 limbs Skin: no rash, normal turgor, cap refill <2 seconds Dx/Plan (1) Dysphagia Code(s): R13.10 - DYSPHAGIA, UNSPECIFIED Status: Acute Qualifiers: Dysphagia type: oropharyngeal phase Qualified Code(s): R13.12 - Dysphagia, oropharyngeal phase Comment: Secondary to obstructive esophageal adenocarcinoma s/p G-tube placement (2) Hypernatremia Code(s): E87.0 - HYPEROSMOLALITY AND HYPERNATREMIA Status: Acute Comment: Increase free-H2O 60ml PT q4h, repeat Na+ level in am (3) Adenocarcinoma of lower esophagus Code(s): C15.5 - MALIGNANT NEOPLASM OF LOWER THIRD OF ESOPHAGUS Status: Chronic Comment: Palliative measures due to advanced age, co-morbid status (4) Dementia Code(s): F03.90 - UNSPECIFIED DEMENTIA WITHOUT BEHAVIORAL DISTURBANCE Status: Chronic Qualifiers: Dementia type: Alzheimer's disease Comment: Resume Namenda 5mg daily (5) HTN (hypertension) Code(s): I10 - ESSENTIAL (PRIMARY) HYPERTENSION Status: Chronic Qualifiers: Hypertension type: essential hypertension Qualified Code(s): I10 - Essential (primary) hypertension Comment: Resume home BP regimen and monitor response - Plan 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
[2018-06-05] MEDS ORDERED: traMADol HCl 50 MG TAB PO PRN (20:15)
[2018-06-05] MEDS: ALPRAZolam 0.5 MG TAB PO SCH (20:52)
[2018-06-05] MEDS: Metoprolol Tartrate 25 MG TAB PO SCH (20:53)
[2018-06-05] MEDS ORDERED: Famotidine 20 MG TAB PER TUBE SCH (21:00)
[2018-06-06] MEDS ORDERED: guaiFENesin/Codeine Phosphate 200 mg/20 mg 10 ml UD Cup PO PRN (01:25)
[2018-06-06] MEDS: Sodium Chloride 0.9% 1,000 ML IV SCH ×2 (04:06→14:38)
[2018-06-06 05:46] LABS: Anion Gap 9 mmol/L (10-20); BUN (Urea Nitrogen) 21 mg/dL (8.4-25.7); Calc. Creatinine Clearance 70 mL/min (70-130); Calcium 8.3 mg/dL (7.8-10.44); Carbon Dioxide 26 mmol/L (23-31); Chloride 112 mmol/L (98-107); Estimated GFR-MDRD 77; Glucose 210 mg/dL (83-110); Potassium 3.2 mmol/L (3.5-5.1); Sodium 144 mmol/L (136-145)
[2018-06-06 05:47] LABS: #Eosinphils 0.1 thou/uL (0.0-0.7); #Lymphocytes 1.5 thou/uL (1.20-3.40); #Monocytes 1.2 thou/uL (0.11-0.59); #Neutrophils 9.1 thou/uL (1.40-6.50); %Basophils 0.1 % (0.0-1.0); %Eosinophils 0.9 % (0.0-10.0); %Lymphocytes 12.9 % (21.0-51.0); %Monocytes 9.7 % (0.0-10.0); %Neutrophils 76.5 % (42.0-75.0); Hemoglobin 11.2 g/dL (14.0-18.0); Mean Corpuscular HGB CONC 34.8 g/dL (32.0-36.0); Mean Corpuscular Hemoglobin 34.2 pg (27.0-31.0); Mean Corpuscular Volume 98.2 fL (78.0-98.0); Mean Platelet Volume 7.6 fL (7.4-10.4); Platelet Count 116 thou/uL (130-400); RBC Distribution Width 11.8 % (11.5-14.5); Red Blood Cell (RBC) Count 3.28 mill/uL (4.70-6.10); White Blood Cell (WBC) Count 11.9 thou/uL (4.8-10.8)
[2018-06-06] MEDS: Budesonide 0.25 MG/2 ML NEB INH SCH ×2 (07:30→20:20)
[2018-06-06] MEDS: Multivit, Therapeutic 1 TAB PO SCH (09:28)
[2018-06-06] MEDS: Ferrous Sulfate 325 MG TAB PO SCH ×2 (09:28→18:02)
[2018-06-06] MEDS: Losartan 25 MG TAB PO SCH (09:28)
[2018-06-06] MEDS: Docusate 100 MG CAP PO SCH (09:28)
[2018-06-06] MEDS: Heparin 5,000 UNITS/ML VIAL SC SCH ×3 (09:28→20:27)
[2018-06-06] MEDS: Metoprolol Tartrate 25 MG TAB PO SCH ×2 (09:28→20:27)
--- NOTE | 2018-06-06 19:17 | PDOC.PN ---
- Subjective Encounter Start Date: 06/06/18 Encounter Start Time: 19:10 Subjective: f/u for esophageal adenocarcinoma with total obstruction s/p gastrostomy -: tube placement. Tolerating Jevity 1.5 bolus feeds. Planning for hospice -: care after d/c back to [facility] - Objective Resuscitation Status: Resuscitation Status DNR:Do Not Resuscitate MAR Reviewed: Yes Vital Signs & Weight: Vital Signs (12 hours) Temp Pulse Resp BP Pulse Ox 06/06/18 11:39 98.6 F 82 26 H 146/77 H 96 06/06/18 09:20 98.6 F 89 28 H 126/69 96 06/06/18 08:00 98.6 F 89 28 H 06/06/18 07:30 88 20 98 Weight Admit Weight 189 lb Weight 189 lb I&O: 06/05/18 06/06/18 06/07/18 06:59 06:59 06:59 Intake Total 1260 5025 1040 Output Total 375 1225 Balance 885 3800 1040 Result Diagrams: 06/07/18 05:40 06/07/18 05:40 Additional Labs: Accuchecks 06/06/18 06/06/18 15:57 11:40 POC Glucose 152 H 172 H Laboratory Tests 06/02/18 06/03/18 06/03/18 14:44 04:53 04:53 WBC 20.0 H Hgb 11.3 L Plt Count 136 Sodium 145 146 H Creatinine 1.81 H 1.39 H 06/03/18 06/04/18 06/04/18 20:10 04:05 04:05 WBC 16.4 H 12.3 H Hgb 10.4 L 10.1 L Plt Count 119 L 116 L Sodium 149 H Creatinine 1.33 H Phys Exam - Physical Examination Constitutional: NAD HEENT: PERRLA, sclera anicteric, oral pharynx no lesions Neck: no nodes, no JVD, supple, full ROM Respiratory: no wheezing, no rales, no rhonchi, clear to auscultation bilateral S1, S2 Cardiovascular: RRR, no significant murmur, no rub, gallop G-tube in place Gastrointestinal: soft, no distention, positive bowel sounds Musculoskeletal: no edema, pulses present Neurological: normal sensation, moves all 4 limbs A x O x 1 Skin: no rash, normal turgor, cap refill <2 seconds Dx/Plan (1) Dysphagia Code(s): R13.10 - DYSPHAGIA, UNSPECIFIED Status: Acute Qualifiers: Dysphagia type: oropharyngeal phase Qualified Code(s): R13.12 - Dysphagia, oropharyngeal phase Comment: Secondary to obstructive esophageal adenocarcinoma s/p G-tube placement , NPO status, tolerating TF's (2) Hypernatremia Code(s): E87.0 - HYPEROSMOLALITY AND HYPERNATREMIA Status: Acute Comment: Increase free-H2O 60ml PT q4h, repeat Na+ level in am, improved (3) Adenocarcinoma of lower esophagus Code(s): C15.5 - MALIGNANT NEOPLASM OF LOWER THIRD OF ESOPHAGUS Status: Chronic Comment: Palliative measures due to advanced age, co-morbid status, Hospice care after d/c (4) Dementia Code(s): F03.90 - UNSPECIFIED DEMENTIA WITHOUT BEHAVIORAL DISTURBANCE Status: Chronic Qualifiers: Dementia type: Alzheimer's disease Comment: Resume Namenda 5mg daily (5) HTN (hypertension) Code(s): I10 - ESSENTIAL (PRIMARY) HYPERTENSION Status: Chronic Qualifiers: Hypertension type: essential hypertension Qualified Code(s): I10 - Essential (primary) hypertension Comment: Resume home BP regimen and monitor response - Plan 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
--- NOTE | 2018-06-06 20:02 | PRG ---
DATE OF SERVICE: 06/06/2018 SUBJECTIVE: The patient is a somewhat confused, but he has no complaints. OBJECTIVE: VITAL SIGNS: Temperature 98.6, pulse 82, respiratory rate 26, blood pressure 146/77. CHEST: Clear. CARDIOVASCULAR: Regular rate and rhythm. ABDOMEN: Benign. Laparoscopically placed gastrostomy is noted. LABORATORY DATA: Shows a white blood cell count of 11.9, hemoglobin 11.2, hematocrit . ASSESSMENT: 1. Esophageal cancer. 2. Esophageal obstruction secondary to esophageal cancer. RECOMMENDATIONS: 1. Agree with hospice care. 2. Continue tube feedings.
[2018-06-06] MEDS: ALPRAZolam 0.5 MG TAB PO SCH (20:27)
[2018-06-07] MEDS: Sodium Chloride 0.9% 1,000 ML IV SCH ×2 (02:09→11:42)
[2018-06-07 06:30] LABS: Anion Gap 10 mmol/L (10-20); BUN (Urea Nitrogen) 19 mg/dL (8.4-25.7); Calc. Creatinine Clearance 79 mL/min (70-130); Calcium 8.4 mg/dL (7.8-10.44); Carbon Dioxide 27 mmol/L (23-31); Chloride 111 mmol/L (98-107); Estimated GFR-MDRD 88; Glucose 204 mg/dL (83-110); Potassium 3.2 mmol/L (3.5-5.1); Sodium 145 mmol/L (136-145)
[2018-06-07 06:43] LABS: Hemoglobin 10.9 g/dL (14.0-18.0); Mean Corpuscular HGB CONC 33.8 g/dL (32.0-36.0); Mean Corpuscular Hemoglobin 33.3 pg (27.0-31.0); Mean Corpuscular Volume 98.5 fL (78.0-98.0); Mean Platelet Volume 7.8 fL (7.4-10.4); Platelet Count 115 thou/uL (130-400); RBC Distribution Width 11.9 % (11.5-14.5); Red Blood Cell (RBC) Count 3.26 mill/uL (4.70-6.10); White Blood Cell (WBC) Count 11.5 thou/uL (4.8-10.8)
[2018-06-07] MEDS: Budesonide 0.25 MG/2 ML NEB INH SCH (06:50)
[2018-06-07] MEDS: Ferrous Sulfate 325 MG TAB PO SCH (09:34)
[2018-06-07] MEDS: Multivit, Therapeutic 1 TAB PO SCH (09:35)
[2018-06-07] MEDS: Heparin 5,000 UNITS/ML VIAL SC SCH (09:35)
[2018-06-07] MEDS: Metoprolol Tartrate 25 MG TAB PO SCH (09:35)
[2018-06-07] MEDS: Losartan 25 MG TAB PO SCH (09:35)
[2018-06-07] MEDS: Docusate 100 MG CAP PO SCH (09:35)
[2018-06-07 12:36] VITALS: BP 167/99; TEMP 98.3
--- NOTE | 2018-06-07 13:55 | DIS ---
DATE OF ADMISSION: 06/02/2018 DATE OF DISCHARGE: 06/07/2018 DISCHARGE DIAGNOSES: 1. Obstructing esophageal adenocarcinoma. 2. Dysphagia secondary to #1. 3. Status post gastrostomy tube placement. 4. Hypernatremia, resolved. 5. 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 6. Hypertension, stable. CONSULTATIONS: Dr. Royal in [facility] with GI service. Dr. Mai with General surgery service. Medical Oncology service. PERTINENT LABORATORY AND X-RAY FINDINGS: Sodium ranged between 144-149, potassium ranged between 3.2 -3.6, creatinine ranged between 0.83-1.07, estimated GFR ranged between 66-88. CBC showed a white bl ood cell count ranging between 7.9-20.0. Hemoglobin ranged between 10.1-12.1. CT of the chest, abdo men, and pelvis dated 06/03/2018 showed large mass centered in the region of the distal esophagus wit h dilated and fluid filled esophagus. Two pulmonary nodules noted in the right upper lobe and right lower lobe. HOSPITAL COURSE: The patient was initially admitted after presenting with profound dysphagia in the context of obstructing esophageal mass/adenocarcinoma. Due to the obstructive nature of the mass and inability to place a PEG tube, the patient was evaluated by the General Surgery service. The patien t proceeded with placement of laparoscopic gastrostomy tube performed on 06/03/2018. The patient was noted with poor oral intake, dehydration, prompting placement of the gastrostomy tube. The patient was placed on Jevity 1.5, tolerating 1 can 8 times per day without high residuals. The patient also received increased free water through the PEG tube for correction of mild hypernatremia. Due to arturo ent's esophageal adenocarcinoma and comorbid status, discussions were had with the family regarding p alliative care versus hospice. Currently, family is wishing to proceed with long-term care wit h potential transition to hospice care at a later date. Medical Oncology also was consulted with rec ommendations for conservative measures given the obstructive nature of the esophageal mass and no ileana ns for aggressive intervention. I have examined the patient at the time of discharge and discussed f ollowup instructions. The patient ready for discharge on 06/07/2018. DISCHARGE MEDICATIONS: 1. Enteric-coated aspirin 81 mg 1 tab p.o. daily. 2. Chlorthalidone 25 mg per PEG tube daily. 3. Vitamin D3 5000 units per PEG tube weekly. 4. Colace 100 mg per PEG tube daily. 5. Vitamin D2 50,000 units per PEG tube weekly. 6. Ferrous sulfate 325 mg per PEG tube b.i.d. 7. Losartan 25 mg per PEG tube daily. 8. Memantine 5 mg per PEG tube daily. 9. Metoprolol tartrate 25 mg per PEG tube b.i.d. 10. Multivitamin 400 mcg per PEG tube daily. 11. Omeprazole 40 mg per PEG tube b.i.d. 12. K-Dur 20 mEq p.o. daily. 13. Pravachol 20 mg per PEG tube at bedtime. 14. Coenzyme Q10 100 mg per PEG tube daily. 16. Xanax 0.5 mg per PEG tube at bedtime. FOLLOWUP: Patient will follow up with Dr. Donis Del Cid at [facility]. The patient will follow up with Dr. Rod Mai and call his office for appointment time and date. P mina will follow up with Medical Oncology service in 2-3 weeks after discharge. CONDITION ON DISCHARGE: Guarded. ACTIVITY: Ad yenifer, rolling walker with standby/contact guard assistance. High fall risk precautions. DIET: Jevity 1.5, one can 8 times per day. Water flushes 120 mL per feeding. CODE STATUS: DO NOT RESUSCITATE. DISPOSITION: Discharged to [facility], 06/07/2018. Total time preparing and coordinating this discharge, 32 minutes.
== END 2018-06-07 15:13 | disposition home or self-care (01) | DRG 375 ==
LOC: ERS 14:19 → SDC/OP 19:50 → SURG A 21:39 → OBSVTOIN 06-03 14:30
PROVIDERS: ADMIT Internal Medicine; ATTEND Internal Medicine
PROC: 0DH64UZ Insertion of Feeding Device into Stomach, Percutaneous Endoscopic Approach (ICD-10-PCS; principal; 2018-06-03)
DX: C15.9 Malignant neoplasm of esophagus, unspecified (principal); E87.0 Hyperosmolality and hypernatremia; R13.10 Dysphagia, unspecified; G30.9 Alzheimer's disease, unspecified; F02.80 Dementia in other diseases classified elsewhere, unspecified severity, without behavioral disturbance, psychotic disturbance, mood disturbance, and anxiety; I10 Essential (primary) hypertension; Z66 Do not resuscitate; I25.10 Atherosclerotic heart disease of native coronary artery without angina pectoris
CPT/HCPCS: 36415; 36416; 71250; 74177; 80048; 80053; 83690; 85025; 93005; 93010; 96360; 96361; A4216; G8978-GP-CL; G8979-GP-CJ; G8987-GO-CJ; G8988-GO-CI; J0670; J1100; J1644; J1885; J2001; J2060; J2250; J2270; J2405; J2704; J3010; J7620; J7626; S0028